=== PATIENT | female | born 1960 | race Caucasian/White ===

== ENCOUNTER 2017-07-28 15:31 | Emergency (ER) | payer OTHER ==
[~2017-07-28] VITALS: Ht 160 cm; Wt 93.0 kg
[~2017-07-28 15:31] MED LIST: FLEXERIL10 MG PO
[2017-07-28 15:37] VITALS: BP 129/85
== END 2017-07-28 17:31 | disposition home or self-care (01) ==
LOC: EME 15:31
PROC: 3E0T3BZ Introduction of Anesthetic Agent into Peripheral Nerves and Plexi, Percutaneous Approach (ICD-10-PCS; principal; 2017-07-28)
DX: K11.5 Sialolithiasis (principal); Z98.890 Other specified postprocedural states
CPT/HCPCS: 99281; 99283